=== PATIENT | male | born 2000 | race Two or more races ===

== ENCOUNTER 2024-10-09 02:32 | Emergency (ER) | payer MEDICARE, SELFPAY ==
[2024-10-09 02:33] VITALS: BMI 23.6
[2024-10-09 02:41] VITALS: BP 150/90; PULSE 105; RESP 18; TEMP 36.7; O2SAT 96
--- NOTE | 2024-10-09 02:48 | XR_ITS ---
Examination: PA lateral chest 2 views TECHNIQUE: Upright PA and lateral chest 2 views Exam date and time: 2024, 0256 hours Comparison April 22, 2024 INDICATIONS: Shortness of breath coughing chest pressure today FINDINGS: Rounded consolidation versus nodule in the right upper lobe, 3 cm Normal heart size. Left lung clear IMPRESSION: Dense pneumonic consolidation versus nodule in the right upper lobe, follow-up chest imaging is needed to document clearing
--- NOTE | 2024-10-09 02:50 | PD.EDRME ---
Rapid Medical Screening Exam RME Arrival date/time: 10/09/24 02:32 24 year old male present to ED for c/o of sob today I have greeted and performed a focused initial assessment of this patient. A comprehensive ED assessment and evaluation of the patient, analysis of all test results, and completion of the medical decision making process will be conducted by additional ED providers. Chief Complaint: Shortness of Breath/Dyspnea Vital signs: Vital Signs Temperature 98.0 F 10/09/24 02:41 Pulse Rate 105 H 10/09/24 02:41 Respiratory Rate 18 10/09/24 02:41 Blood Pressure 150/90 H 10/09/24 02:41 Pulse Oximetry (%) 96 10/09/24 02:41 Oxygen Delivery Method Room Air 10/09/24 02:41
--- NOTE | 2024-10-09 05:02 | EDNOTE_ITS ---
ED SOB =RME/HPI General Chief Complaint: Shortness of Breath/Dyspnea Stated Complaint: CHEST TIGHTNESS, HERE A FEW MONTHS AGO FOR SAME Time Seen by Provider: 10/09/24 03:26 Arrival date/time: 10/09/24 02:32 24 year old male present to emergency room with c/o of chest tightness, shortness of breath for 1 day. pt report similar to his past episode of pneumonia. SEVERITY: Symptoms are described as being severe with limitations on activities of daily living CONTEXT: The patient is unable to identify any inciting events. DURATION/TIMING: The symptoms started approximately 1 day ASSOCIATED SYMPTOMS: chest tightness and shortness of breath MODIFYING FACTORS: The patient is unable to identify any alleviating or aggravating symptoms. PERTINENT ROS: no fevers, no cough, no pleuritic pain, no ripping or tearing sensations, denies any lower extremity edema and no unilateral swelling, no nausea,vomiting, diarrhea, no dizziness/headache no rash no loc/syncope episode no abd/back pain no dsyuria,urgency,frequency REVIEW OF SYSTEMS: See History of Present Illness - with the exception of those mentioned in the history of present illness, all other systems reviewed and reported as negative GENERAL: In general the patient is awake, interactive, in an emergency department gurney. HEAD/EYES/EARS/NOSE/THROAT: normo-cephalic, atraumatic, mucus membranes are moist, anicteric, palpebral conjunctiva is pink, trachea is midline. CARDIOVASCULAR: regular rate and regular rhythm, no murmurs, heart sounds are not distant, strong pulses in all four extremities that are equal and symmetric bilateral upper and lower extremities, normal capillary refill. CHEST/PULMONARY: normal chest rise and fall, good air movement, clear to auscultation bilaterally, normal inspiratory to expiratory ratios without evidence of respiratory distress. NECK: No midline/Paraspinal tenderness, no step off ROM/Strenght intact No Kernig and bruzinski sign. No trauma ABDOMEN: soft, not tender, no masses appreciated BACK: normal range of motion without pain. NEUROLOGICAL: cranio-facial features are symmetric, moves all four extremities equally without obvious limitations or weakness. EXTREMITY: no tenderness to palpation over the long bones or large joints of the bilateral upper and lower extremities, no joint swelling, no joint erythema, no signs of trauma, no unilateral leg swelling and no peripheral edema. SKIN: warm, dry, well-perfused, no jaundice, no rash, no telangiectasias or petechia. PSYCH: calm, cooperative, no evidence of psychosis or agitation RME / HPI RME / HPI Narrative: 10/09/24 02:32 24 year old male present to ED for c/o of sob today I have greeted and performed a focused initial assessment of this patient. A comprehensive ED assessment and evaluation of the patient, analysis of all test results, and completion of the medical decision making process will be conducted by additional ED providers. Related Data Previous Rx's ?Medication ?Instructions ?Recorded albuterol sulfate 90 mcg/actuation 2 inh inhalation Q6 H PRN shortness 04/22/24 breath activated powder inhaler of breath or wheezing #1 ea azithromycin 250 mg tablet See Rx Instructions PO .COM PLEX #6 04/22/24 (Zithromax Z-Amador) tabs albuterol sulfate 90 mcg/actuation 1 inh inhalation QI D PRN shortness 10/09/24 aerosol inhaler of breath or wheezing #6.7 g negrita oseltamivir 75 mg capsule (Tamiflu) 75 mg PO BID 5 day s #10 caps 10/09/24 Allergies Allergy/AdvReac Type Severity Reaction Status Date / Time No Known Allergies Allergy Verified 04/22/24 21:51 Course Course Course Narrative: xray, covid/flu Patient presenting with influenza like symptoms.? Obtained influenza A/B screen, which revealed positive influenza.? The following were considered in the patient's differential diagnosis but was not deemed to be consistent with p atient's history of present illness and/or physical examination; meningitis, pharyngitis, otitis media, pneumonia, urinary tract infection, peritonsillar abscess, retropharyngeal abscess.? As patient does not present with any signs/symptoms of pneumonia or other complications,? further labwork at this time. Educated patient on diagnosis and natural course of influenza.? Supportive care and preventive measures were discussed.? Continue fluid hydration. Follow up with primary physician in 3-5 days if symptoms continue or new problems arise. Return if having persistent high fever, altered mental status, shortness of breath, uncontrolled vomiting, or other concerns.? ? xray: no acute findings, wet read? Plan:? Prescribed tamiflu, inhaler? Advised patient on support therapies, including rest, advancement of fluids as tolerated, thorough handwashing w/ soap and H2O, taking OTC ibuprofen or acetaminophen as directed, OTC expectorant/antitussive/decongestants as directed. Advised patient to refrain from visiting work, school, or daycares or visiting women, elderly, or those w/ chronic illnesses. Advised patient to return with new or worsening symptoms. Quality Measures none Orders Category Date Time Status Bedside COVID-19 Antigen Test NOW Care 10/09/24 02:51 Active Bedside Influenza A&B Antigen Test NOW Care 10/09/24 02:51 Completed XR chest 2V Stat Exams 10/09/24 02:48 Taken Albuterol/Ipratr Rt Thi [Duoneb Rt Thi] Med 10/09/24 04:52 Discontinued 3 ml INH X1 ONE Oseltamivir [Tamiflu] Med 10/09/24 04:59 Once 75 mg PO X1 ONE Reevaluation(s) Reevaluation #1: pt is feeling better Vital Signs Vital signs: Vital Signs Temperature 98.0 F 10/09/24 02:41 Pulse Rate 105 H 10/09/24 02:41 Respiratory Rate 18 10/09/24 02:41 Blood Pressure 150/90 H 10/09/24 02:41 Pulse Oximetry (%) 96 10/09/24 02:41 Oxygen Delivery Method Room Air 10/09/24 02:41 Shortness of Breath / Dyspnea Patient data External records reviewed:: [facility] previous records Clinical information provided by:: patient Social determinants that could affect healthcare access:: none Patient has the following chronic illnesses:: n/a How is presenting disease/condition affected by chronic disease/condition?: no chronic disease Evaluation data The following diagnostics were reviewed and interpreted by me:: lab results and radiology exam(s) Lab and/or radiology exams considered but not ordered:: n/a Interpretation Summary: + flu cxr: nad wet read Medications / Prescriptions Medications or Prescriptions considered but not ordered:: n/a Medication administrations:: Medication Administration History Oseltamivir Phosphate (Oseltamivir 75 Mg Capsule) 75 mg PO X1 ONE Stop: 10/09/24 05:00 Discontinued Medications Albuterol/Ipratropium (Albuterol/Ipratropium (Duoneb) Rt Thi 3 Ml Nebu) 3 ml INH X1 ONE Stop: 10/09/24 04:53 as stated above Consultations Consultation(s) initiated? (list below): No Diagnosis Shortness of Breath Differential Diagnosis: acute exacerbation of chronic obstructive airways disease, community acquired pneumonia, asthma with exacerbation and other (influenza, covid) Most likely diagnosis given after review of the tests above:: influenza Admission Indicated Admission indicated?: not indicated Admission Request Was there a request for admission?: No Disposition Plan Disposition Plan: Discharge Discharge Attestation Discharge Attestation: The patient and all family members were given an opportunity to ask questions and understood the discharge instructions. Discharge instructions specifically effects, indications for sooner follow up or return to the emergency department, and the expected course of current diagnosis. Patient condition: Stable Discharge Plan Plan Patient Disposition: HOME (Self Care) Health Concerns: Follow with PMD as directed Take tylenol or motrin as need Return to ED if sx worsen Prescriptions/Referrals Prescriptions/Med Rec: New oseltamivir [Tamiflu] 75 mg capsule 75 mg PO BID 5 Days Qty: 10 0RF albuterol sulfate 90 mcg/actuation HFA aerosol inhaler 1 inh inhalation QID PRN (Reason: shortness of breath or wheezing) Qty: 6.7 0RF No Action albuterol sulfate 90 mcg/actuation aerosol powdr breath activated 2 inh inhalation Q6H PRN (Reason: shortness of breath or wheezing) Qty: 1 0RF azithromycin [Zithromax Z-Amador] 250 mg tablet See Rx Instructions .ROUTE .COMPLEX Qty: 6 0RF Rx Instructions: For 250 mg dose pack: take 500 mg today (day 1), then 250 mg for 4 days (days 2-5) Referrals: No Primary/Family,Physician [Primary Care Provider] - In 1 week Problem List Clinical Impression: Influenza Patient/Caregiver Discharge Instructions Education Materials: ED Influenza (Adult) Print Language: Khmer Stand Alone Forms: Ceci Award Info., Patient Portal Info Letter
[2024-10-09] MEDS: OSELTAMIVIR 75 MG CAPSULE PO (05:32)
[2024-10-09 05:35] VITALS: BP 129/86; PULSE 91; RESP 17; TEMP 36.4; O2SAT 98
== END 2024-10-09 05:39 | disposition home or self-care (01) ==
PROVIDERS: Emergency Provider Emergency Medicine
DX: J10.1 Influenza due to other identified influenza virus with other respiratory manifestations (principal)
CPT/HCPCS: 71046; 87400; 87811; 99283; A9270